=== PATIENT | female | born 1945 | race Caucasian/White ===

== ENCOUNTER 2025-07-05 17:40 | Emergency (ER) | payer OTHER ==
[~2025-07-05] VITALS: Ht 157.5 cm; Wt 80.0 kg
--- NOTE | 2025-07-05 18:52 | ED.PDOC ---
[place]. trauma (HPI) HPI Comments 79 y/o F, with PMHx of CVA and RI presents to the ED for CC of s/p fall injury. Patient states, she had a fall yesterday (07/04/25) hitting her head. Patient reports, pain to her left lutheran area. Patient endorses, currently being on Eliquis. Patient denies nausea, vomiting, blurred vision, or headache. No other symptoms or modifying factors present at this time. Chief Complaint: Head Injury Time Seen by MD: 18:20 Reviewed notes: Nurses Notes, Medications, Allergies Allergies: Coded Allergies: Codeine (Verified Allergy, Unknown, 07/05/25) Penicillins (Verified Allergy, Unknown, 07/05/25) Uncoded Allergies: IV CONTRAST (Allergy, Unknown, 07/05/25) Information Source: Patient Mode of Arrival: Ambulatory Severity: Moderate Timing: Days Duration: Since onset Prehospital treatment: None Location: Head Location of laceration: None Mechanism: Fall Associated signs and symtoms: None Past Medical History PAST MEDICAL HISTORY: CVA, RI Surgical History: Denies all surgeries HOMIC[employer]GE[employer] History: Denies all HOM[employer] 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 Family History Family History: Unknown Social History Smoker: Non-Smoker Alcohol: Denies ETOH Use Drugs: Denies Drug Use Lives In: Home Constitutional: denies: chills, diaphoresis, fatigue, fever, malaise, sweats, weakness, others EENTM: denies: blurred vision, double vision, ear bleeding, ear discharge, ear drainage, ear pain, ear ringing, eye pain, eye redness, hearing loss, mouth pain, mouth swelling, nasal discharge, nose bleeding, nose congestion, nose pain, photophobia, tearing, throat pain, throat swelling, voice changes, others Respiratory: denies: cough, hemoptysis, orthopnea, SOB at rest, shortness of breath, SOB with excertion, stridor, wheezing, others Cardiovascular: denies: chest pain, dizzy spells, diaphoresis, Dyspnea on exertion, edema, irregular heart beat, left arm pain, lightheadedness, palpitations, PND, syncope, others Gastrointestinal: denies: abdomen distended, abdominal pain, blood streaked bowels, constipated, diarrhea, dysphagia, difficulty swallowing, hematemesis, melena, nausea, poor appetite, poor fluid intake, rectal bleeding, rectal pain, vomiting, others Genitourinary: denies: abnormal vagina bleeding, burning, dyspareunia, dysuria, flank pain, frequency, hematuria, incontinence, pain, , vagina discharge, urgency, others Neurological: denies: dizziness, fainting, headache, left sided numbness, left sided weakness, numbness, paresthesia, pre-existing deficit, right sided numbness, right sided weakness, seizure, speech problems, tingling, tremors, weakness, others Musculoskeletal: denies: back pain, gout, joint pain, joint swelling, muscle pain, muscle stiffness, neck pain, others Integumetry: denies: bruises, change in color, change in hair/nails, dryness, laceration, lesions, lumps, rash, wounds, others Allergic/Immunocompromised: denies: Difficulty Healing, Frequent Infections, Hives, Itching, others Hematologic/Lymphatic: denies: anemia, blood clots, easy bleeding, easy bruising, swollen glands, others Endocrine: denies: excessive hunger, excessive sweating, excessive thirst, excessive urination, flushing, intolerance to cold, intolerance to heat, unexplained weight gain, unexplained weight loss, others Psychiatric: denies: anxiety, bipolar disorder, depression, hopeless, panic disorder, schizophrenia, sleepless, suicidal, others All Other Systems: Reviewed and Negative Physical Exam General Appearance: No Apparent Distress, Normal HEENT: Head (left lutheran erythema), Normal ENT Inspection, Pharynx Normal Neck: Full Range of Motion, Non-Tender, Normal, Normal Inspection Respiratory: Chest Non-Tender, Lungs Clear, No Accessory Muscle Use, No Respiratory Distress, Normal Breath Sounds Cardiovascular: No Edema, No Murmur, No Gallop, Normal Peripheral Pulses, Regular Rate/Rhythm Breast Exam: Deferred Gastrointestinal: No Organomegaly, Non Tender, No Pulsatile Mass, Normal Bowel Sounds, Soft Genitalia: Deferred Pelvic: Deferred Rectal: Deferred Extremities: No calf tenderness, Normal capillary refill, Normal inspection, Normal range of motion, Non-tender, No pedal edema Musculoskeletal : Apperance: Normal Neurologic: Alert, warehouse order selector II-XII nml as Tested, No Motor Deficits, Normal Affect, Normal Mood, No Sensory Deficits Cerebellar Function: Normal Reflexes: Normal Skin: Dry, Normal Color, Warm Lymphatic: No Adenopathy Was a procedure done? Was a procedure done?: No Differential Diagnosis Multiple Trauma: Closed Head Injury, Hematoma Neck Injury: Cervical Sprain, Cervical Strain X-Ray, Labs, Meds, VS Vital Signs Date Time Temp Pulse Resp B/P (MAP) Pulse Ox O2 Delivery O2 Flow Rate FiO2 07/05/25 17:50 62 07/05/25 17:47 97.5 62 16 133/42 97 97.5 Lab Test 07/05/25 21:21 Range/Units White Blood Count 4.7 4.4-10.8 10^3/uL Red Blood Count 4.59 4.0-5.20 10^6/uL Hemoglobin 12.3 12.2-16.2 g/dL Hematocrit 36.4 36.0-46.0 % Mean Corpuscular Volume 79.3 L 80.0-100.0 fL Mean Corpuscular Hemoglobin 26.8 L 28.0-32.0 pg Mean Corpuscular Hemoglobin Concent 33.7 32.0-36.0 g/dL Red Cell Distribution Width 15.5 H 11.8-14.3 % Platelet Count 174 140-450 10^3/uL Mean Platelet Volume 7.7 6.9-10.8 fL Neutrophils (%) (Auto) 55.5 37.0-80.0 % Lymphocytes (%) (Auto) 33.1 10.0-50.0 % Monocytes (%) (Auto) 8.6 0.0-12.0 % Eosinophils (%) (Auto) 2.1 0.0-7.0 % Basophils (%) (Auto) 0.7 0.0-2.0 % Neutrophils # (Auto) 2.6 1.6-8.6 10 ^3/uL Lymphocytes # (Auto) 1.6 0.4-5.4 10 ^3/uL Monocytes # (Auto) 0.4 0-1.3 10 ^3/uL Eosinophils # (Auto) 0.1 0-0.8 10 ^3/uL Basophils # (Auto) 0 0-0.2 10 ^3/uL Nucleated Red Blood Cells 0.1 % Sodium Level Pending Potassium Level Pending Chloride Level Pending Carbon Dioxide Level Pending Anion Gap Pending Blood Urea Nitrogen Pending Creatinine Pending Glomerular Filtration Rate Calc Pending BUN/Creatinine Ratio Pending Serum Glucose Pending Calcium Level Pending Troponin I High Sensitivity 6 </=34 ng/L X-Ray, Labs, Meds, VS Comment Imaging was reviewed by this provider, there is no obvious pathological or acute disease process. Pending radiology review Labs were reviewed by this provider, no abnormalities Vital signs reviewed by this provider, clinically stable Time of 1ST Reevaluation: 18:50 Reevaluation 1ST: Unchanged Patient Education/Counseling: Diagnosis, Treatment, Need For Follow Up (Follow up with PCP next available appointment. Return to the emergency department if symptoms worsen.) Family Education/Counseling: No Family Present Departure 1 Departure Time of Disposition: 22:15 Impression: Primary Impression: Closed head injury Qualified Codes: S09.90XA - Unspecified injury of head, initial encounter Disposition: HOME / SELF CARE / HOMELESS Condition: Fair Discharged With: Self Critical Care Note Critical Care Time?: No Stability Stability form required: No Heart Score Heart Score: Heart Score Response (Comments) Value History N/A 0 EKG N/A 0 Age N/A 0 Risk Factors N/A 0 Troponin N/A 0 Total 0 I personally scribed for MIRIAN CERDA ([email or web address]) on 07/05/25 at 18:52. Electronically submitted by Felicia Everett ([email or web address]). MIRIAN CERDA Jul 05, 2025 18:52
--- NOTE | 2025-07-05 21:06 | DVH ---
CLINICAL HISTORY: fall TECHNIQUE: Helical scanning was performed of the head from the skull base to the vertex. Multiplanar reconstructions were performed. This exam was performed according to our departmental dose optimizat ion program. Up-to-date CT equipment and radiation dose reduction techniques are utilized as appropri ate. CTDI 48.7 DLP 876.5 COMPARISON: None FINDINGS: There is no evidence for acute intracranial hemorrhage, acute ischemic changes, mass, mass effect, or extra-axial fluid collection. There is no hydrocephalus or midline shift. There is no effacement of the cerebral sulci and basal subarachnoid cisterns. The mixon-white matter differentiation is well marissa ntained. The imaged paranasal sinuses are clear. IMPRESSION: NO ACUTE INTRACRANIAL ABNORMALITY SEEN.
[2025-07-05 21:42] LABS: Hemoglobin 12.3 g/dL (12.2-16.2); Nucleated Red Blood Cells % 0.1 %
--- NOTE | 2025-07-05 21:42 | DVH ---
CLINICAL HISTORY: fall/dizzy TECHNIQUE: Single view of the chest was obtained. COMPARISON: None FINDINGS: The heart size and pulmonary vasculature are normal. The lungs are clear. IMPRESSION: NO ACUTE CARDIOPULMONARY PROCESS.
[2025-07-05 21:45] LABS: Hematocrit 36.4 % (36.0-46.0); Mean Corpuscular Hemoglobin 26.8 pg (28.0-32.0); Mean Corpuscular Volume 79.3 fL (80.0-100.0)
[2025-07-05 22:13] LABS: Chloride 105 mmol/L (98-107); Potassium 4.2 mmol/L (3.5-5.1); Sodium 141 mmol/L (136-145)
[2025-07-05 22:14] LABS: Anion Gap 15 (5-15); Carbon Dioxide 21 mmol/L (20-31)
[2025-07-05 22:20] LABS: BUN/Creatinine Ratio 16.1 (10.0-20.0); Blood Urea Nitrogen 19 mg/dL (9-23); Glucose 75 mg/dL (74-106)
[2025-07-05 22:23] LABS: Calcium 10.4 mg/dL (8.7-10.4)
[2025-07-05 23:26] VITALS: BP 148/75; PULSE 62; RESP 20; TEMP 98.7; O2SAT 96
--- NOTE | 2025-07-07 12:29 | ECG ---
[facility] Test Date: 2025-07-05 Test Time: 17:50:51 Pat Name: MERCEDES DURON Department: ED Room: Gender: F Cash Applications Coordinator: dr QUARLES: 1945 Requested By: MIRIAN CERDA Order Number: [id number] Reading MD: Tenzin Pinon Measurements Intervals Sayner Rate: 62 P: 3 MN: 182 QRS: 30 QRSD: 85 T: 10 QT: 383 QTc: 389 Interpretive Statements Sinus rhythm Electronically Signed On 07-07-2025 22:29:25 PDT by Tenzin Pinon Please click the below link to view image of tracing.
== END 2025-07-05 23:30 | disposition home or self-care (01) ==
LOC: ER 17:40
DX: S09.8XXA Other specified injuries of head, initial encounter (principal); I25.2 Old myocardial infarction; Z86.73 Personal history of transient ischemic attack (TIA), and cerebral infarction without residual deficits; Z88.0 Allergy status to penicillin; Z88.5 Allergy status to narcotic agent; Z79.01 Long term (current) use of anticoagulants; W19.XXXA Unspecified fall, initial encounter; Y93.89 Activity, other specified; Y92.89 Other specified places as the place of occurrence of the external cause; Y99.8 Other external cause status
CPT/HCPCS: 36415; 70450; 71045; 80048; 84484; 85025; 93005